=== PATIENT | male | born 1980 | race Two or more races ===

== ENCOUNTER → 2017-02-01 | Outpatient (REF) | payer BC | LOC: M SMT 16:53 | PROVIDERS: ATTEND Urology | DX: N13.2 Hydronephrosis with renal and ureteral calculous obstruction (principal) ==

== ENCOUNTER 2020-06-03 09:34 | Emergency (ER) | payer BC ==
[~2020-06-03] VITALS: Ht 172.7 cm; Wt 118.2 kg
[2020-06-03] MEDS ORDERED: METF500T13 PO ×2 (09:40)
[2020-06-03] MEDS ORDERED: LISI10TA4 PO (09:40)
[2020-06-03] MEDS ORDERED: ONDANSETRON 4MG/2ML VIAL IV ONE (10:00)
[2020-06-03] MEDS: MORPHINE 4 MG/ML 1ML VIAL/SYRINGE (J2270) IV PRN ×2 (10:00→10:22)
--- NOTE | 2020-06-03 10:35 | REP ---
INDICATION: unilateral severe flank pain radiating to groin COMPARISON: None TECHNIQUE: Axial noncontrast images from the lung bases to the pubic symphysis with coronal and sagittal reformations. This CT examination was performed using the following dose reduction techniques: Automated exposure control, adjustment of mA and/or kv according to the patient's size, and use of iterative reconstruction technique. FINDINGS: Moderate acute left-sided obstructive uropathy including mildly edematous appearance of the kidney with perinephric inflammatory stranding and small amounts of fluid and hydronephrosis is secondary to a 3.5 mm obstructing calculus at the ureteropelvic junction (images 90-92). Multiple nonobstructing intrarenal calculi measure up to 5 mm in the left kidney and 4 mm in the right kidney. Bilateral ureters and bladder appear normal. Hepatosteatosis. Spleen, pancreas, gallbladder, and bilateral adrenal glands are normal. The enteric system is without obstruction or acute inflammatory process. Normal terminal ileum and appendix identified in the right lower quadrant. Pelvis demonstrates normal bladder and age-appropriate prostate/seminal vesicles. Small forming fat containing inguinal hernias noted. No ascites. No free air. No adenopathy. Abdominal aorta without aneurysm. Musculoskeletal structures are intact. Lung bases are clear. IMPRESSION: 1. Acute moderate left-sided obstructive uropathy with a 3.5 mm obstructing calculus at the ureteropelvic junction. Bilateral nonobstructing calculi noted. 2. Hepatosteatosis. <Electronically signed by Ti Murphy > 06/03/20 [id number]
[2020-06-03 10:42] LABS: BASO # 0.1 10^3/uL (0.0-0.2); BASO % 0.5 % (0.0-1.0); EOS # 0.2 10^3/uL (0.0-0.5); EOS % 1.5 % (0.0-3.0); HEMATOCRIT 42.3 % (42.0-52.0); HEMOGLOBIN 14.7 g/dl (13.5-17.5); LYMPH # 1.9 10^3/uL (1.5-5.0); LYMPH % 17.1 % (24.0-44.0); MEAN CORPUSCULAR HEMOGLOBIN 30.9 pg (27.0-33.0); MEAN CORPUSCULAR HGB CONC 34.8 g/dl (32.0-36.5); MEAN CORPUSCULAR VOLUME 89.1 fl (80.0-96.0); MONO # 0.7 10^3/uL (0.0-0.8); MONO % 6.4 % (0.0-5.0); NEUTROPHILS # 8.3 10^3/uL (1.5-8.5); NEUTROPHILS % 73.3 % (36.0-66.0); PLATELET COUNT, AUTOMATED 234 10^3/uL (150-450); RED BLOOD COUNT 4.75 10^6/uL (4.30-6.10); WHITE BLOOD COUNT 11.3 10^3/uL (4.0-10.0)
[2020-06-03] MEDS ORDERED: KETOROLAC 30 MG/ML 1ML VIAL IV ONE (10:45)
[2020-06-03] MEDS ORDERED: METOCLOPRAMIDE INJ 10MG/2ML VIAL (J2765 PER 1) IV ONE (10:45)
[2020-06-03] MEDS ORDERED: NS 500 ML IV ONE ×2 (10:45→11:15)
[2020-06-03 10:54] LABS: ALBUMIN 3.9 GM/DL (3.2-5.2); BILIRUBIN,DIRECT 0.1 MG/DL (0.0-0.2); BILIRUBIN,TOTAL 0.5 MG/DL (0.2-1.0); TOTAL PROTEIN 7.1 GM/DL (6.4-8.2)
[2020-06-03 11:09] LABS: CALCIUM LEVEL 9.6 MG/DL (8.5-10.1); CREATININE FOR GFR 1.42 MG/DL (0.70-1.30); GLOMERULAR FILTRATION RATE 58.5 (>60); POTASSIUM SERUM 3.9 MEQ/L (3.5-5.1)
[2020-06-03 12:21] LABS: GLUCOSE, URINE (UA) MANUAL 4+(1000 MG/DL) mg/dL (NEGATIVE); KETONE, URINE MANUAL 1+ mg/dL (NEGATIVE); UROBILINOGEN, URINE MANUAL NORMAL (NORMAL)
[2020-06-03 12:22] LABS: BILIRUBIN, URINE MANUAL NEGATIVE (NEGATIVE)
[2020-06-03 12:32] LABS: BACTERIA, URINE NONE SEEN; SQUAMOUS EPITHELIAL CELL URINE SMALL AMOUNT /hpf (SMALL AMT); TRANSITIONAL EPI CELLS, URINE SMALL AMOUNT /hpf
[2020-06-03 12:33] LABS: HYALINE CAST, URINE 0-1 /lpf (0-1)
[2020-06-03] MEDS ORDERED: NORC1TAB5 PO (13:11)
[2020-06-03] MEDS ORDERED: ACET500T15 PO (13:14)
[2020-06-03] MEDS ORDERED: METO5TAB2 PO (13:15)
[2020-06-03] MEDS ORDERED: NORC1TAB7 PO (13:29)
[2020-06-03 13:40] VITALS: BP 132/66
--- NOTE | 2020-06-03 19:17 | ECGEPIP ---
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
== END 2020-06-03 13:49 | disposition home or self-care (01) ==
LOC: M ED 09:34 → EDBD 09:34 → M ED 13:49
DX: N13.0 Hydronephrosis with ureteropelvic junction obstruction (principal); N20.0 Calculus of kidney; K76.0 Fatty (change of) liver, not elsewhere classified; E11.9 Type 2 diabetes mellitus without complications; K21.9 Gastro-esophageal reflux disease without esophagitis; R00.2 Palpitations; R11.2 Nausea with vomiting, unspecified; Z79.84 Long term (current) use of oral hypoglycemic drugs; Z79.899 Other long term (current) drug therapy
CPT/HCPCS: 74176; 80048; 80076; 81000; 81015; 83690; 84484; 85025; 93005; 93041; 94760; 96374; 96375; 99285; J1885; J2270; J2405; J2765

== ENCOUNTER 2020-06-06 04:24 | Day surgery (SDC) | payer BC ==
[~2020-06-06] VITALS: Ht 172.7 cm; Wt 125.5 kg
[2020-06-06] VITALS (7 sets, daily range): BP systolic 134–160; BP diastolic 86–95
[~2020-06-06 04:24] MED LIST: ACET500T15 PO; LISI10TA4 PO; METF500T13 PO; METO5TAB2 PO; NORC1TAB5 PO; NORC1TAB7 PO
[2020-06-06] MEDS ORDERED: TAMSULOSIN 0.4 MG CAP PO ONE (05:15)
[2020-06-06] MEDS ORDERED: NS 1,000 ML IV ONE (05:15)
[2020-06-06] MEDS ORDERED: KETOROLAC 30 MG/ML 1ML VIAL IV ONE (05:15)
[2020-06-06 05:17] LABS: BASO # 0.1 10^3/uL (0.0-0.2); BASO % 0.5 % (0.0-1.0); EOS # 0.2 10^3/uL (0.0-0.5); EOS % 2.1 % (0.0-3.0); HEMATOCRIT 39.6 % (42.0-52.0); HEMOGLOBIN 13.4 g/dl (13.5-17.5); LYMPH # 1.5 10^3/uL (1.5-5.0); LYMPH % 14.2 % (24.0-44.0); MEAN CORPUSCULAR HEMOGLOBIN 30.2 pg (27.0-33.0); MEAN CORPUSCULAR HGB CONC 33.8 g/dl (32.0-36.5); MEAN CORPUSCULAR VOLUME 89.2 fl (80.0-96.0); MONO # 1.1 10^3/uL (0.0-0.8); MONO % 10.8 % (0.0-5.0); NEUTROPHILS # 7.5 10^3/uL (1.5-8.5); NEUTROPHILS % 71.8 % (36.0-66.0); PLATELET COUNT, AUTOMATED 199 10^3/uL (150-450); RED BLOOD COUNT 4.44 10^6/uL (4.30-6.10); WHITE BLOOD COUNT 10.4 10^3/uL (4.0-10.0)
[2020-06-06 05:48] LABS: ALBUMIN 2.7 GM/DL (3.2-5.2); BILIRUBIN,DIRECT 0.4 MG/DL (0.0-0.2); BILIRUBIN,TOTAL 1.1 MG/DL (0.2-1.0); CALCIUM LEVEL 9.2 MG/DL (8.5-10.1); CREATININE FOR GFR 1.75 MG/DL (0.70-1.30); TOTAL PROTEIN 7.1 GM/DL (6.4-8.2)
--- NOTE | 2020-06-06 05:58 | REPVR ---
PROCEDURE INFORMATION: Exam: CT Abdomen And Pelvis Without Contrast Exam date and time: 06/06/2020 5:29 AM Age: 39 years old Clinical indication: Abdominal pain; Additional info: Renal colic TECHNIQUE: Imaging protocol: Computed tomography of the abdomen and pelvis without contrast. Radiation optimization: All CT scans at this facility use at least one of these dose optimization techniques: automated exposure control; mA and/or kV adjustment per patient size (includes targeted exams where dose is matched to clinical indication); or iterative reconstruction. COMPARISON: CT ABD PELVIS W/O CONTRAST 06/03/2020 10:03 AM FINDINGS: Lungs: Atelectasis or scarring in the lingula. Liver: Hepatomegaly and steatosis. Gallbladder and bile ducts: Normal. No calcified stones. No ductal dilation. Pancreas: Normal. No ductal dilation. Spleen: Normal. No splenomegaly. Adrenal glands: Normal. No mass. Kidneys and ureters: Mild left hydroureteronephrosis to the level a 5 mm calculus in the proximal to mid left ureter. Nonobstructive bilateral nephrolithiasis. Left perinephric periureteral fat stranding. Possible punctate calculus in the distal right ureter best seen on coronal image number 75. Stomach and bowel: Diverticulosis of colon. No evidence of acute diverticulitis. Appendix: No evidence of appendicitis. Intraperitoneal space: Unremarkable. No free air. No significant fluid collection. Vasculature: Unremarkable. No abdominal aortic aneurysm. Lymph nodes: Unremarkable. No enlarged lymph nodes. Urinary bladder: Unremarkable as visualized. Reproductive: Unremarkable as visualized. Bones/joints: Multilevel degenerative disease and facet hypertrophy of the lumbar spine. Stenosis of the spinal canal at L4-L5. Soft tissues: Fat containing umbilical hernia. Fat containing bilateral inguinal hernias. IMPRESSION: 1. Mild left hydroureteronephrosis to the level a 5 mm calculus in the proximal to mid left ureter. 2. Possible punctate calculus in the distal right ureter best seen on coronal image number 75. Electronically signed by: Ken Sandoval On 06/06/2020 05:58:30 AM
[2020-06-06] MEDS: NS 1,000 ML IV SCH ×4 (09:00→20:52)
[2020-06-06] MEDS: DOCUSATE SODIUM 100MG CAPSULE PO SCH ×2 (09:00→20:39)
[2020-06-06] MEDS ORDERED: MORPHINE 2 MG/ML 1ML VIAL (J2270) IV PRN (10:30)
[2020-06-06] MEDS ORDERED: PERCOCET 5MG/325MG TAB PO PRN ×3 (10:30→20:00)
[2020-06-06] MEDS ORDERED: DEXTROSE 50% 50 ML SYRINGE IV PRN (10:30)
[2020-06-06] MEDS ORDERED: ONDANSETRON 4MG/2ML VIAL IV PRN ×2 (10:30→20:00)
[2020-06-06] MEDS ORDERED: GLUCAGON INJ 1MG VIAL SC PRN (10:30)
[2020-06-06] MEDS ORDERED: GLUCOSE 4GM CHEW TABLET PO PRN (10:30)
[2020-06-06] MEDS: HumaLOG INSULIN (NovoLOG) PER UNIT SC SCH ×4 (12:00→20:43)
[2020-06-06] MEDS ORDERED: CONRAY-60 60% 50ML VIAL (Q9961) As Ordered ONE (15:40)
--- NOTE | 2020-06-06 17:18 | SMCUROLCON ---
Urology Consultation General Date of Consultation 06/06/20 Reason For Consultation This patient is seen for Ureterolithiasis. History of Present Illness This is a 39 y/o M w/ a PMH significant for HTN, DM2, and kidney stones, presenting to the ER for the 2nd time in 4 days w/ L flank pain. He notes that the pain worsened this morning, prompting him to come back to the ER. CT A/P done today was notable for movement of the 5mm stone seen on CT 4 days ago from the left UPJ to the mid/proximal left ureter. There are additional stones inside each kidney as well. He notes having nausea earlier but no vomiting. Denies f/c. Denies dysuria. Past Medical History Medical History see HPI Surgical Hstory ESWL over 20 yrs ago Medications Current Medications Current Medications Medications (Trade) Dose Ordered Sig/Soraya Route PRN Reason Start Time Stop Time Status Last Admin Dose Admin Acetaminophen (Tylenol Tab) 650 mg Q4HP PRN PO MILD PAIN or TEMP > 101 06/06/20 10:30 Dextrose (Dextrose 50%) 25 ml ASDIRECTED PRN IV SEE LABEL COMMENTS 06/06/20 10:30 Docusate Sodium (Colace) 100 mg BID PO 06/06/20 09:00 Glucagon (Glucagon) 1 mg ASDIRECTED PRN SC SEE LABEL COMMENTS 06/06/20 10:30 Glucose (Glucose) 16 GM ASDIRECTED PRN PO SEE LABEL COMMENTS 06/06/20 10:30 Home Med (Med Rec Complete!) ASDIRECTED XX 06/06/20 09:30 06/06/20 09:32 DC Insulin Human Lispro (HumaLOG INSULIN) See Protocol Table AC SC 06/06/20 12:00 Insulin Human Lispro (HumaLOG INSULIN) See Protocol Table QHS SC 06/06/20 21:00 Morphine Sulfate (Morphine Sulfate Inj) 2 mg Q3HP PRN IV BREAKTHROUGH PAIN 06/06/20 10:30 Ondansetron HCl (ZOFRAN INJection) 4 mg Q6HP PRN IV NAUSEA OR VOMITING 06/06/20 10:30 Oxycodone/ Acetaminophen (Percocet 5mg/ 325mg Tablet) 1 tab Q4H PRN PO MODERATE PAIN (PS 5-7) 06/06/20 10:30 Oxycodone/ Acetaminophen (Percocet 5mg/ 325mg Tablet) 2 tab Q4HP PRN PO SEVERE PAIN (PS 8-10) 06/06/20 10:30 Sodium Chloride 1,000 ml @ 50 mls/hr Q20H IV 06/06/20 10:19 06/06/20 11:45 Sodium Chloride 1,000 ml @ 150 mls/hr Q6H40M IV 06/06/20 08:45 06/06/20 09:00 Allergies Allergies: Coded Allergies: No Known Drug Allergies (Verified Allergy, Unknown, 06/03/20) Review of Systems Constitutional: Denies: Fever, Chills, Sweats, Weakness, Malaise ENT: Denies: Head Aches, Sore Throat, Epistaxis Skin: Denies: Rash, Lesions, Breakdown, Nail Changes Pulmonary: Denies: Dyspnea, Cough Cardiovascular: Denies Chest Pain, Denies Palpitations, Denies Orthopnea, Denies Paroxysmal Noc. Dyspnea, Denies Edema, Denies Lt Headedness, Denies Other Symptoms Gastrointestinal: Reports: Nausea, Abdominal Pain (left abd); Denies: Vomiting, Other Symptoms Genitourinary: Denies: Dysuria, Frequency, Incontinence, Hematuria Musculoskeletal: Reports: Back Pain (left flank pain) Neurological: Denies: Weakness, Numbness, Incoordination, Change in Speech Psych: Reports: Mood Normal; Denies: Anxiety, Depression Physical Examination General Exam: Alert, Cooperative, No Acute Distress Chest Exam: Normal air movement Heart Exam: Regular Rhythm Abdomen Exam: Soft, Tenderness (LLQ) Skin Exam: Nl turgor and temperature Neuro Exam: Normal Speech Psych Exam: Mental status NL, Mood NL Vital Signs/I&O Vital Signs Date Time Temp Pulse Resp B/P (MAP) Pulse Ox O2 Delivery O2 Flow Rate FiO2 06/06/20 11:45 97.7 79 20 134/86 (102) 95 Room Air Laboratory Data 24H Labs Laboratory Tests 2 06/06/20 05:09: Immature Granulocyte % (Auto) 0.6, Neutrophils (%) (Auto) 71.8H, Lymphocytes (%) (Auto) 14.2L, Monocytes (%) (Auto) 10.8H, Eosinophils (%) (Auto) 2.1, Basophils (%) (Auto) 0.5, Neutrophils # (Auto) 7.5, Lymphocytes # (Auto) 1.5, Monocytes # (Auto) 1.1H, Eosinophils # (Auto) 0.2, Basophils # (Auto) 0.1, Nucleated Red Blood Cells % (auto) 0.0, Urine Color YELLOW, Urine Appearance CLEAR, Urine pH 6.0, Urine Specific [place] 1.013, Urine Protein NEGATIVE, Urine Glucose (UA) 1+H, Urine Ketones TRACEH, Urine Blood 2+H, Urine Nitrite NEGATIVE, Urine Bilirubin NEGATIVE, Urine Urobilinogen 0.2, Urine Leukocyte Esterase NEGATIVE, Urine WBC (Auto) 0, Urine RBC (Auto) 15H, Urine Hyaline Casts (Auto) 0, Urine B acteria (Auto) NEGATIVE, Urine Squamous Epithelial Cells 0, Urine Sperm (Auto) , Anion Gap 8, Glomerular Filtration Rate 46.0L, Calcium Level 9.2, Total Bilirubin 1.1#H, Direct Bilirubin 0.4H, Aspartate Amino Transf (AST/SGOT) 12, Alanine Aminotransferase (ALT/SGPT) 41, Alkaline Phosphatase 60, Total Protein 7.1, Albumin 2.7#L, Albumin/Globulin Ratio 0.6, Lipase 125 06/06/20 08:53: Coronavirus (COVID-19)(PCR) NEGATIVE 06/06/20 11:57: Bedside Glucose (Misc Panel) 124H CBC/BMP Laboratory Tests 06/06/20 05:09 Assessment This is a 39 y/o M w/ worsening left flank pain 2/2 an obstructing 5mm proximal left ureteral stone and VANESA w/ a Cr bump to 1.75. I recommended that we take him to the OR today for cystoscopy, left ureteroscopy w/ laser lithotripsy, and left ureteral stent placement. After a discussion of the risks and benefits of the procedure, informed consent was signed. Plan - informed consent signed - 3g ancef OCOR - NPO - patient may be discharged home postop if pain better controlled ANNA RESENDIZ MD Jun 06, 2020 15:52
[2020-06-06] MEDS ORDERED: ceFAZolin SOD 1 GM in D5W MINI-BAG PLUS 50 ML IV ONE (17:30)
[2020-06-06] MEDS ORDERED: ceFAZolin SOD 3 GM in IV 1 EA IV ONE (17:30)
[2020-06-06] MEDS ORDERED: ceFAZolin SOD 2 GM in IV 1 EA IV ONE (17:30)
[2020-06-06] MEDS ORDERED: KETOROLAC 60MG 2ML VIAL As Ordered ONE (17:41)
[2020-06-06] MEDS ORDERED: propofoL 200 MG/20 ML VIAL As Ordered ONE (17:41)
[2020-06-06] MEDS ORDERED: ceFAZolin 2 GM/D5W 50 ML IV BAG (J0690 PER 500MG) As Ordered ONE (17:41)
[2020-06-06] MEDS ORDERED: MIDAZOLAM INJ 2MG/2ML VIAL (J2250 PER 1MG) As Ordered ONE (17:41)
[2020-06-06] MEDS ORDERED: LIDOCAINE 2% 100MG/5ML SDV (FOR ANES.) As Ordered ONE (17:41)
[2020-06-06] MEDS ORDERED: fentaNYL 100 MCG/2 ML INJECTION (J3010) As Ordered ONE (17:41)
[2020-06-06] MEDS ORDERED: ceFAZolin 1GM VIAL (J0690 PER 500MG) As Ordered ONE (17:42)
[2020-06-06] MEDS ORDERED: ONDANSETRON 4MG/2ML VIAL As Ordered ONE (17:42)
[2020-06-06] MEDS ORDERED: PHENYLephrine HCL 500 MCG/5 ML (100MCG/ML) SYRINGE (J2370) As Ordered ONE (19:05)
[2020-06-06] MEDS ORDERED: MEPERIDINE INJ 25 MG/ML VIAL (J2175) As Ordered ONE (19:30)
[2020-06-06] MEDS: MEPERIDINE INJ 25 MG/ML VIAL (J2175) IV PRN ×2 (19:32→19:40)
--- NOTE | 2020-06-06 19:33 | REP ---
INDICATION: LEFT STENT PLACEMENT. COMPARISON: None TECHNIQUE: Two spot views of the abdomen and pelvis were obtained using a portable C-arm device in my absence. 22 seconds of fluoroscopy time was provided for the exam. FINDINGS: A double pigtail stent is seen on the left the proximal portion of which is in the region of the renal pelvis and the distal portion of which is in the urinary bladder on the left. IMPRESSION: As above <Electronically signed by Dewey Krishnamurthy > 06/06/20 2001
[2020-06-06] MEDS ORDERED: LR 1,000 ML IV SCH (20:00)
[2020-06-06] MEDS ORDERED: fentaNYL 100 MCG/2 ML INJECTION (J3010) IV PRN (20:00)
[2020-06-06] MEDS ORDERED: METOCLOPRAMIDE INJ 10MG/2ML VIAL (J2765 PER 1) IV PRN (20:00)
[2020-06-06] MEDS: ACETAMINOPHEN TAB 650MG DOSE (2X325MG) PO PRN (20:52)
[2020-06-06] MEDS ORDERED: oxyBUTYnin 5 MG TAB PO PRN (21:00)
[2020-06-07 00:30] VITALS: BP 150/88
[2020-06-07] MEDS: ACETAMINOPHEN TAB 650MG DOSE (2X325MG) PO PRN (02:57)
[2020-06-07 04:30] VITALS: BP 142/86
[2020-06-07] MEDS: HumaLOG INSULIN (NovoLOG) PER UNIT SC SCH ×2 (07:30→11:43)
[2020-06-07 08:41] LABS: HEMATOCRIT 38.1 % (42.0-52.0); HEMOGLOBIN 13.1 g/dl (13.5-17.5); MEAN CORPUSCULAR HEMOGLOBIN 31.2 pg (27.0-33.0); MEAN CORPUSCULAR HGB CONC 34.4 g/dl (32.0-36.5); MEAN CORPUSCULAR VOLUME 90.7 fl (80.0-96.0); PLATELET COUNT, AUTOMATED 210 10^3/uL (150-450); WHITE BLOOD COUNT 9.6 10^3/uL (4.0-10.0)
[2020-06-07] MEDS ORDERED: lisinopriL 10 MG TAB PO SCH (09:00)
[2020-06-07 09:06] LABS: CALCIUM LEVEL 8.6 MG/DL (8.5-10.1); CREATININE FOR GFR 1.46 MG/DL (0.70-1.30); GLOMERULAR FILTRATION RATE 56.6 (>60); POTASSIUM SERUM 5.2 MEQ/L (3.5-5.1)
[2020-06-07 09:28] VITALS: BP 153/88
[2020-06-07] MEDS: DOCUSATE SODIUM 100MG CAPSULE PO SCH (09:28)
[2020-06-07 10:00] VITALS: BP 152/88
--- NOTE | 2020-06-07 11:47 | RO ---
OPERATIVE NOTE DATE OF OPERATION: 06/06/2020 PREOPERATIVE DIAGNOSIS: Obstructing left ureteral stone. POSTOPERATIVE DIAGNOSIS: Obstructing left ureteral stone. PROCEDURE: Cystoscopy, left ureteroscopy with laser lithotripsy and basket extraction of stone; left retrograde pyelogram with intraoperative interpretation of images; left ureteral stent placement. SURGEON: Vasyl Husain MD BACK TUFTER: None. ANESTHESIA: General. OPERATIVE INDICATIONS: This is a 39-year-old male who presented to the emergency room about 3 or 4 days ago with a severe left-sided flank pain secondary to an obstructing proximal left ureteral stone. His pain worsened today and he came back in, and a repeat CAT scan demonstrated a stone within the similar location. He is brought to the operating room for treatment. DESCRIPTION OF PROCEDURE: The patient was brought to the operating room and general anesthesia was induced. Prophylactic antibiotics were infused. He was placed in the dorsal lithotomy position, and prepped and draped in the usual sterile fashion. A rigid cystoscope was inserted in the urethral meatus and advanced into the bladder. A guidewire was advanced up the left collecting system. I then advanced the ureteral access sheath up the left collecting system. I went up the ureteral access sheath with the flexible ureteroscope and within the proximal ureter an approximately 5 mm stone was seen. The stone was fragmented into smaller pieces using a 272 micron laser fiber. All of the stone fragments were removed using a basket. Of note; the patient's proximal ureter was very narrow and, therefore, it was hard to get the scope all the way into the kidney. I was ultimately able to do this and there were several smaller stones throughout the calyces in the kidney. I utilized the laser to fragment all the stones into smaller pieces that should be small enough to pass. Once this was done, a retrograde pyelogram was performed and it was notable for moderate left hydronephrosis with no extravasation. I then withdrew the ureteroscope along with the access sheath and no additional stones were seen inside the ureter. I then utilized the guidewire to advance a 6-Serbian x 22-32 cm JJ ureteral stent into the left collecting system. The wire was removed and there were adequate curls of the stent in the left renal pelvis and in the bladder. The bladder was then emptied of all fluid and this marked the conclusion of the procedure. The patient was then taken out of the dorsal lithotomy position, awakened from anesthesia, and transported to the recovery room in stable condition. ESTIMATED BLOOD LOSS: 5 mL. COMPLICATIONS: None. SPECIMEN: Kidney stone fragments. PLAN: I will have the patient follow up in the urology clinic to set him up for a right-sided extracorporeal shock wave lithotripsy for his right-sided kidney stones. I will plan on taking his left renal stent out at the time of that surgery. BRENDA
--- NOTE | 2020-06-07 13:17 | IPNPDOC ---
Subjective Review oF Systems Chief Complaint The patient is a 39-year-old male admitted with a reason for visit of Ureterolithiasis. Events since Last Encounter No acute events o/n. Pain much improved from prior to surgery yesterday. No n/v. Objective Physical Examination General Exam: Alert, Cooperative, No Acute Distress ABDOMEN EXAM: Soft, Hepatospenomegaly; No: Tenderness Neuro Exam: Normal Speech Psych Exam: Mental status NL, Mood NL Vital Signs/I&O Vital Signs Date Time Temp Pulse Resp B/P (MAP) Pulse Ox O2 Delivery O2 Flow Rate FiO2 06/07/20 10:00 97.9 74 20 152/88 (109) 95 Room Air I&O- Last 24 Hours up to 6 AM 06/07/20 06:00 Intake Total 2850 ml Output Total 100 ml Balance 2750 ml Laboratory Data Labs 24H Laboratory Tests 2 06/06/20 15:47: Bedside Glucose (Misc Panel) 107H 06/06/20 18:22: 06/06/20 20:41: Bedside Glucose (Misc Panel) 136H 06/07/20 05:40: Bedside Glucose (Misc Panel) 122H 06/07/20 08:19: Nucleated Red Blood Cells % (auto) 0.0, Anion Gap 8, Glomerular Filtration Rate 56.6L, Calcium Level 8.6 06/07/20 11:31: Bedside Glucose (Misc Panel) 126H CBC/BMP Laboratory Tests 06/07/20 08:19 FSBS Laboratory Tests Test 06/06/20 15:47 06/06/20 20:41 06/07/20 05:40 06/07/20 11:31 Range/Units Bedside Glucose (Misc Panel) 107 136 122 126 70-105 MG/DL Assessment/Plan Date Seen The patient was seen on 06/07/20. Patient Summary This is a 39 y/o M admitted for pain and VANESA 2/2 an obstructing L ureteral stone, POD1 s/p cysto, L URS w/ laser lithotripsy, and L ureteral stent placement. He feels much better today. Cr improving, down to 1.46 from 1.75 yesterday. Potassium mildly elevated. Plan/VTE VTE Prophylaxis Ordered?: Yes VTE Exclusion Mechanical Proph: N/A:VTE Prophy Ordered Plan - percocet prn pain - hyperkalemia should resolve w/ increased fluid intake - diabetic diet - plan discharge home today - will arrange outpt f/u as he will need R ESWL, cysto, and L ureteral stent removal ANNA RESENDIZ MD Jun 07, 2020 13:17
== END 2020-06-07 14:20 | disposition home or self-care (01) ==
LOC: M ED 04:24 → M SDC 04:25 → ENRESERV 10:35 → M MS5PR 11:46 → M SDC 06-07 14:20
PROVIDERS: ATTEND Urology
DX: N20.1 Calculus of ureter (principal); I10 Essential (primary) hypertension; E11.9 Type 2 diabetes mellitus without complications; E66.9 Obesity, unspecified; Z79.84 Long term (current) use of oral hypoglycemic drugs; Z79.899 Other long term (current) drug therapy; Z87.891 Personal history of nicotine dependence
CPT/HCPCS: 36415; 52356; 74176; 74420; 80048; 80076; 81001; 82365; 83690; 85025; 85027; 88300; 93041; 96361; 96374; 96375; 99285; C1769; C1894; C2617; J0690; J1885; J2175; J2250; J2370; J2405; J2765; J3010; Q9961; U0002

== ENCOUNTER → 2020-06-18 | Outpatient (CLI) | payer BC ==
[~2020-06-18] MED LIST changes: +FLOM0.4C39 PO
== END ==
LOC: M LABSMTC 11:23
PROVIDERS: ATTEND Anesthesiology
DX: Z11.59 Encounter for screening for other viral diseases (principal)

== ENCOUNTER 2020-06-23 06:15 | Day surgery (SDC) | payer BC ==
[~2020-06-23] VITALS: Ht 172.7 cm; Wt 121.5 kg
[~2020-06-23 06:15] MED LIST changes: +LIDOCAINE 1% MDV 20ML VIAL SQ PRN
[2020-06-23] MEDS ORDERED: ceFAZolin SOD 2 GM in IV 1 EA IV ONE (07:00)
[2020-06-23] MEDS ORDERED: LR 1,000 ML IV ONE (07:00)
[2020-06-23] MEDS ORDERED: LIDOCAINE 2% 5ML JELLY UROJET As Ordered ONE (07:16)
--- NOTE | 2020-06-23 07:42 | REP ---
INDICATION: PREOP FOR SDC. COMPARISON: Retrograde pyelogram dated 06/06/2020. TECHNIQUE: Single AP view of the abdomen and pelvis. FINDINGS: There is a right ureteral stent with the proximal and distal pigtails in satisfactory locations. There is a mildly distended small bowel loop in the mid abdomen, possibly focal ileus. The bowel gas pattern is otherwise normal. There are no calcifications. Skeletal structures and soft tissues otherwise are unremarkable. IMPRESSION: Left ureteral stent. Mildly distended focal loop of small bowel in the mid abdomen. <Electronically signed by Ricki Harper > 06/23/20 0794
[2020-06-23] MEDS ORDERED: MIDAZOLAM INJ 2MG/2ML VIAL (J2250 PER 1MG) As Ordered ONE (08:00)
[2020-06-23] MEDS ORDERED: GLYCOPYRROLATE INJ 0.2 MG/ML 2 ML VIAL As Ordered ONE (08:00)
[2020-06-23] MEDS ORDERED: propofoL 200 MG/20 ML VIAL As Ordered ONE (08:00)
[2020-06-23] MEDS ORDERED: LIDOCAINE 2% 100MG/5ML SDV (FOR ANES.) As Ordered ONE (08:00)
[2020-06-23] MEDS ORDERED: fentaNYL 100 MCG/2 ML INJECTION (J3010) As Ordered ONE (08:00)
[2020-06-23] MEDS ORDERED: KETAMINE HCL 200 MG/20 ML VIAL As Ordered ONE ×2 (08:00→08:23)
[2020-06-23] MEDS ORDERED: ONDANSETRON 4MG/2ML VIAL As Ordered ONE (08:01)
[2020-06-23] MEDS ORDERED: OXYC1TAB23 PO (08:47)
[2020-06-23 09:30] VITALS: BP 168/99
[2020-06-23] MEDS ORDERED: fentaNYL 100 MCG/2 ML INJECTION (J3010) IV PRN (09:30)
[2020-06-23] MEDS ORDERED: METOCLOPRAMIDE INJ 10MG/2ML VIAL (J2765 PER 1) IV PRN (09:30)
[2020-06-23] MEDS ORDERED: ONDANSETRON 4MG/2ML VIAL IV PRN (09:30)
[2020-06-23] MEDS ORDERED: LR 1,000 ML IV SCH (09:30)
[2020-06-23] MEDS ORDERED: PERCOCET 5MG/325MG TAB PO PRN (09:30)
--- NOTE | 2020-06-23 13:29 | RO ---
OPERATIVE NOTE DATE OF OPERATION: 06/23/2020 PREOPERATIVE DIAGNOSIS: Kidney stones. POSTOPERATIVE DIAGNOSIS: Kidney stones. PROCEDURE: Right extracorporeal shock wave lithotripsy, cystoscopy with removal of left ureteral stent. SURGEON: Vasyl Husain MD CARE ATTENDANT: None. ANESTHESIA: MAC. OPERATIVE INDICATIONS: This is a 39-year-old male who presented to the hospital a few weeks ago with bilateral kidney stones with one obstructing on the left. He was taken to the operating room that day for cystoscopy, left ureteroscopy, laser lithotripsy with basket extraction of stone and left ureteral stent placement. He is brought back to the operating room today for right-sided extracorporeal lithotripsy to take care of his right-sided kidney stones and to remove his left ureteral stent. DESCRIPTION OF PROCEDURE: The patient was brought to the operating room and MAC anesthesia was administered. Prophylactic antibiotics were infused. He was then placed in supine position and prepped and draped in usual sterile fashion. The flexible cystoscope was inserted into the urethral meatus and advanced into the bladder. The previously placed left ureteral stent was seen. The stent was then grasped and removed intact from the bladder. The patient was then repositioned for right-sided extracorporeal shock wave lithotripsy. Fluoroscopy and ultrasound were used to utilized to monitor stone position and fragmentation throughout procedure. Shock waves were then delivered to the right-sided kidney stones ungated. There were no arrhythmias. The two largest stones were targeted and they appeared to fragment well. After 2500 shocks, the procedure was completed. The patient was awakened from anesthesia and transported to the recovery room in stable condition. ESTIMATED BLOOD LOSS: 0 mL. COMPLICATIONS: None. SPECIMENS: None. PLAN: The patient will follow up in urology clinic in approximately 3-4 weeks with imaging prior to assess for residual stone burden. BRENDA
== END 2020-06-23 09:35 | disposition home or self-care (01) ==
LOC: M SDC 06:15
PROVIDERS: ATTEND Urology
DX: N20.0 Calculus of kidney (principal); E11.9 Type 2 diabetes mellitus without complications; I10 Essential (primary) hypertension; F17.220 Nicotine dependence, chewing tobacco, uncomplicated; G47.30 Sleep apnea, unspecified; R06.83 Snoring; Z79.84 Long term (current) use of oral hypoglycemic drugs; Z79.899 Other long term (current) drug therapy
CPT/HCPCS: 50590; 52310; 74018; J0690; J2250; J2405; J3010

== ENCOUNTER → 2020-07-13 | Outpatient (REF) | payer BC ==
[~2020-07-13] MED LIST changes: -LIDOCAINE 1% MDV 20ML VIAL SQ PRN; +OXYC1TAB23 PO
[2020-07-13 14:10] LABS: APPEARANCE, URINE CLOUDY (CLEAR); BACTERIA, URINE AUTO NEGATIVE (NEGATIVE); BILIRUBIN, URINE AUTO NEGATIVE (NEGATIVE); BLOOD, URINE BLOOD 3+ (NEGATIVE); COLOR, URINE YELLOW (YELLOW); GLUCOSE, URINE (UA) AUTO 3+ mg/dL (NEGATIVE); KETONE, URINE AUTO NEGATIVE (NEGATIVE); LEUKOCYTE ESTERASE, URINE AUTO NEGATIVE (NEGATIVE); MUCUS, URINE SMALL (NEGATIVE); NITRITE, URINE AUTO NEGATIVE (NEGATIVE); PROTEIN, URINE AUTO 2+ mg/dL (NEGATIVE); RBC, URINE AUTO TNTC /HPF (0-3); SPECIFIC GRAVITY URINE AUTO 1.018 (1.002-1.035); SQUAMOUS EPITHELIAL CELL UR AU 0 /HPF (0-6); UROBILINOGEN, URINE AUTO 0.2 mg/dL (0.0-2.0); WBC, URINE AUTO 2 /HPF (0-3)
== END ==
LOC: M SMT 13:14
PROVIDERS: ATTEND Nurse Practitioner Women's Health
DX: N20.0 Calculus of kidney (principal)

== ENCOUNTER → 2020-07-15 | Outpatient (CLI) | payer BC ==
--- NOTE | 2020-07-15 17:49 | REP ---
INDICATION: N20.0 KIDNEY STONE COMPARISON: None TECHNIQUE: Real time gross scale and color Doppler ultrasound examination using curved array transducer. FINDINGS: Right kidney is normal in contour, size, echogenicity, intrarenal vascularity and reniform shape without hydronephrosis and measures 12.1 x 7.3 x 5.5 cm (RI 0.57). A 4 mm midpole calculus is suggested. No cystic or renal mass lesion. No perinephric fluid collection. Left kidney is normal in contour, size, echogenicity, intrarenal vascularity and reniform shape measuring 12.7 x 5.5 x 6.1 cm (RI 0.52) with mild hydronephrosis suggested. No obvious intrarenal calculi, cystic or renal mass lesion. No perinephric fluid collection. Bladder appears normal and without wall thickening or mass lesion. Bilateral ureteral jets are identified. Bladder measures 8.6 x 7.4 x 4.6 cm (191 cc). IMPRESSION: 1. Moderate left hydronephrosis without renal calculi. 2. A 4 mm right renal calculus without hydronephrosis. 3. Normal appearance to the bladder. <Electronically signed by Ti Murphy > 07/15/20 [id number]
== END ==
LOC: M WHC 15:02
PROVIDERS: ATTEND Nurse Practitioner Women's Health
DX: N20.0 Calculus of kidney (principal)

== ENCOUNTER → 2020-07-15 | Outpatient (CLI) | payer BC ==
--- NOTE | 2020-07-15 16:12 | REPPI ---
INDICATION: KIDNEY STONE COMPARISON: 06/23/2020 TECHNIQUE: Supine view of the abdomen and pelvis. FINDINGS: 3 mm nonobstructing right renal calculus suggested. Previous left ureteral stent has been removed. Further evaluation of the urinary tract system is limited due to overlying bowel gas. No bowel obstruction. No organomegaly. Skeletal structures are intact. IMPRESSION: 3 mm nonobstructing right renal calculus. <Electronically signed by Ti Murphy > 07/15/20 [id number]
== END ==
LOC: M PLAIMG 15:07
PROVIDERS: ATTEND Nurse Practitioner Women's Health
DX: N20.0 Calculus of kidney (principal)

== ENCOUNTER → 2020-07-29 | Outpatient (CLI) | payer BC ==
[~2020-07-29] MED LIST changes: +ISOVUE-370 76% 100ML VIAL As Ordered ONE; +LISI10TA22 PO; -LISI10TA4 PO
--- NOTE | 2020-07-31 19:48 | REP ---
INDICATION: UNSPECIFIED HYDRONEPHROSIS. COMPARISON: None TECHNIQUE: Axial precontrast, contrast-enhanced and delayed images from the lung bases to the pubic symphysis using 100 cc Isovue 370 intravenous contrast material. Coronal and sagittal reformations obtained. This CT examination was performed using the following dose reduction techniques: Automated exposure control, adjustment of mA and/or kv according to the patient's size, and the use of iterative reconstruction technique. FINDINGS: Mild acute left-sided obstructive uropathy with perinephric stranding and proximal hydroureteronephrosis secondary to a 3 mm obstructing calculus in the proximal ureter (series 301; images 81-83). Small bilateral intrarenal calculi are also identified measuring up to approximately 3 mm. Hepatosteatosis without focal hepatic lesion. Spleen, pancreas, gallbladder, and bilateral adrenal glands are normal. The enteric system is without obstruction or acute inflammatory process. Normal terminal ileum and appendix are identified in the right lower quadrant. Scattered sigmoid diverticula noted without acute diverticulitis. Pelvis demonstrates normal bladder and age-appropriate prostate/seminal vesicles. No ascites. No free air. No adenopathy. Abdominal aorta without aneurysm or dissection. Musculoskeletal structures are intact. Lung bases are clear. IMPRESSION: 1. Mild acute left-sided obstructive uropathy with a 3 mm obstructing calculus in the proximal left ureter. 2. Small bilateral nonobstructing nephroliths up to 3 mm. 3. Hepatosteatosis. 4. Few scattered sigmoid diverticula. <Electronically signed by Ti Murphy > 07/31/201943
== END ==
LOC: M RAD 09:10
PROVIDERS: ATTEND Nurse Practitioner Women's Health
DX: N13.2 Hydronephrosis with renal and ureteral calculous obstruction (principal); R10.9 Unspecified abdominal pain; K76.0 Fatty (change of) liver, not elsewhere classified; K57.30 Diverticulosis of large intestine without perforation or abscess without bleeding
CPT/HCPCS: 74178; Q9967